=== PATIENT | female | born 1995 | race Two or more races ===

== ENCOUNTER 2024-02-06 14:40 | Outpatient (CLI) | payer OTHER | END 2024-02-06 14:41 | disposition home or self-care (01) | LOC: PRENATAL 14:40 | PROVIDERS: ATTEND Obstetrics & Gynecology Maternal & Fetal Medicine | DX: O36.80X0 Pregnancy with inconclusive fetal viability, not applicable or unspecified (principal); Z36.9 Encounter for antenatal screening, unspecified; Z36.82 Encounter for antenatal screening for nuchal translucency; Z3A.12 12 weeks gestation of pregnancy ==

== ENCOUNTER 2024-03-29 15:39 | Outpatient (CLI) | payer OTHER | END 2024-03-29 15:40 | disposition home or self-care (01) | LOC: PRENATAL 15:39 | PROVIDERS: ATTEND Obstetrics & Gynecology Maternal & Fetal Medicine | DX: O35.3XX0 Maternal care for (suspected) damage to fetus from viral disease in mother, not applicable or unspecified (principal); O44.00 Complete placenta previa NOS or without hemorrhage, unspecified trimester; Z3A.20 20 weeks gestation of pregnancy ==

== ENCOUNTER 2024-06-10 15:55 | Outpatient (CLI) | payer OTHER | END 2024-06-10 19:42 | disposition home or self-care (01) | LOC: NST 15:55 | PROVIDERS: ATTEND Obstetrics & Gynecology | DX: Z34.83 Encounter for supervision of other normal pregnancy, third trimester (principal) ==

== ENCOUNTER 2024-07-30 22:08 | Inpatient (IN) | payer OTHER ==
[~2024-07-30] VITALS: Ht 160 cm; Wt 73.9 kg
[2024-07-30 21:43] VITALS: BP 110/73
[2024-07-30] MEDS ORDERED: AMPICILLIN SODIUM 2,000 MG VIAL ONE (22:20)
[2024-07-30] MEDS ORDERED: AMPICILLIN SODIUM 2,000 MG VIAL IV ONE (22:30)
[2024-07-30] MEDS ORDERED: RINGERS SOLUTION,LACTATED 1,000 ML IV SCH (22:30)
[2024-07-30] MEDS ORDERED: PRENATAL TABLE1 EAC4 PO (22:35)
[2024-07-30 23:12] VITALS: BP 97/64
[2024-07-30 23:23] LABS: URINE APPEARANCE Clear; URINE BILIRRUBIN Negative (NEGATIVE); URINE BLOOD Negative; URINE COLOR Yellow; URINE GLUCOSE Negative (NEGATIVE); URINE KETONE Negative (NEGATIVE); URINE LEUKOCYTE Negative; URINE NITRATE Negative; URINE PROTEIN Negative (NEGATIVE); URINE UROBILINOGEN 0.2 E.U./dl
[2024-07-30 23:24] LABS: HEMATOCRIT 34.8 % (36.0-45.00); HEMOGLOBIN 11.5 g/dL (12.0-15.00); MEAN CELL VOLUME 81.6 fL (80.00-100.00); MEAN CORPUSCULAR HGB CONC 33.1 g/dl (32.0-36.0); PLATELET COUNT 203 K/uL (150-450); RED BLOOD COUNT 4.26 M/uL (4.00-6.00)
[2024-07-30 23:27] LABS: URINE BACTERIA 165.1 uL (0.0-1933); URINE EPITHELIAL CELLS 3.1 uL (0.0-38.8); URINE RBC 12.8 uL (0.0-20.8); URINE WBC 2.2 uL (0.0-23.2)
[2024-07-30 23:41] LABS: INR < 0.93; PARTIAL THROMBOPLASTIN TIME 27.1 SECONDS (22.0-34.0)
[2024-07-30 23:46] LABS: ALBUMIN 2.6 gm/dL (3.4-5.0); BILIRUBIN TOTAL 0.24 mg/dL (0.3-1.2); CALCIUM 8.8 mg/dL (8.5-10.1); CREATININE SERUM 0.46 mg/dL (0.55-1.02); GFR 162.95; GLOBULINA 3.2 G/DL (2.4-3.5); POTASSIUM 4.13 mEq/L (3.5-5.1); TOTAL PROTEIN 5.8 gm/dL (6.4-8.2)
[2024-07-31] VITALS (10 sets, daily range): BP systolic 108–135; BP diastolic 51–77
[2024-07-31] MEDS ORDERED: AMPICILLIN SODIUM 1,000 MG VIAL ONE ×2 (03:47→07:32)
[2024-07-31] MEDS ORDERED: AMPICILLIN SODIUM 1,000 MG VIAL IV SCH (04:00)
[2024-07-31] MEDS ORDERED: OXYTOCIN 20 UNITS/500ML RL PIGGYBAG IV ONE (06:55)
[2024-07-31] MEDS ORDERED: OXYTOCIN 500 ML IV SCH (07:00)
[2024-07-31] MEDS ORDERED: CHLORHEXIDINE GLUCONATE 120 ML BOTTLE TOP ONE (12:37)
[2024-07-31] MEDS ORDERED: ERYTHROMYCIN BASE OPHT 1GM EACH TUBE OP ONE ×2 (12:37→17:45)
[2024-07-31] MEDS ORDERED: LIDOCAINE HCL 1% 10ML VIAL ONE (12:37)
[2024-07-31] MEDS ORDERED: OXYTOCIN 20 UNITS/1000ML RL PIGGYBAG IV ONE (12:37)
[2024-07-31] MEDS ORDERED: KETOROLAC TROMETHAMINE 30 MG VIAL ONE (17:11)
[2024-07-31] MEDS ORDERED: OXYTOCIN 1,000 ML IV SCH (18:15)
[2024-07-31] MEDS ORDERED: IBUprofen 400 MG TABLET PO PRN (18:15)
[2024-07-31] MEDS ORDERED: CHLORHEXIDINE GLUCONATE 120 ML BOTTLE TP SCH (18:15)
[2024-07-31] MEDS ORDERED: OxyCODONE HCL/APAP UD (PERCOCET) PO PRN (18:15)
[2024-07-31] MEDS ORDERED: ACETAMINOPHEN 325 MG TABLET PO PRN (18:30)
[2024-07-31] MEDS ORDERED: KETOROLAC TROMETHAMINE 30 MG VIAL IV ONE (18:30)
[2024-08-01 03:24] VITALS: BP 107/66
[2024-08-01 06:31] LABS: HEMATOCRIT 29.1 % (36.0-45.00); MEAN CELL VOLUME 82.8 fL (80.00-100.00); MEAN CORPUSCULAR HGB CONC 32.9 g/dl (32.0-36.0); PLATELET COUNT 190 K/uL (150-450); RED BLOOD COUNT 3.51 M/uL (4.00-6.00)
[2024-08-01 06:38] LABS: HEMOGLOBIN 9.6 g/dL (12.0-15.00); MEAN CORPUSCULAR HEMOGLOBIN 27.3 pg (27.00-32.0)
[2024-08-01 08:09] VITALS: BP 115/62
[2024-08-01] MEDS ORDERED: PNV,CALCIUM 72/IRON/FOLIC ACID 1 TAB TABLET PO SCH (09:00)
[2024-08-01] MEDS ORDERED: DOCUSATE SODIUM 100MG CAP PO NR (13:00)
[2024-08-01 15:53] VITALS: BP 116/73
[2024-08-02 02:18] VITALS: BP 112/74; BP 116/75
[2024-08-02 08:00] VITALS: BP 109/71
[2024-08-02] MEDS ORDERED: DOCUSATE SODIUM 100MG CAP PO SCH (09:00)
[2024-08-02] MEDS ORDERED: MAGNESIUM HYDROXIDE 30 ML BLIST.PACK PO NR (09:00)
[2024-08-02] MEDS ORDERED: BISACODYL 10 MG/SUPP.RECT SUPP.RECT RECTAL NR (09:00)
[2024-08-02] MEDS ORDERED: MINERAL OIL 30 ML BLIST.PACK PO NR (09:00)
[2024-08-02 15:33] VITALS: BP 135/83
[2024-08-02] MEDS ORDERED: HYDROCORTISONE 1% 29 G TUBE TOP SCH (21:35)
[2024-08-03 07:38] VITALS: BP 116/77
== END 2024-08-03 13:21 | disposition home or self-care (01) | DRG 807 ==
LOC: LDR 22:08 → OB/GYN 07-31 18:55
PROVIDERS: Obstetrics & Gynecology; Specialist; ADMIT Student in an Organized Health Care Education/Training Program; ATTEND Student in an Organized Health Care Education/Training Program
PROC: 4A1HXCZ Monitoring of Products of Conception, Cardiac Rate, External Approach (ICD-10-PCS; 2024-07-30)
PROC: 10E0XZZ Delivery of Products of Conception, External Approach (ICD-10-PCS; principal; 2024-07-31)
PROC: 0UQG7ZZ Repair Vagina, Via Natural or Artificial Opening (ICD-10-PCS; 2024-07-31)
PROC: 3E033VJ Introduction of Other Hormone into Peripheral Vein, Percutaneous Approach (ICD-10-PCS; 2024-07-31)
DX: O71.4 Obstetric high vaginal laceration alone (principal); Z37.0 Single live birth; O42.02 Full-term premature rupture of membranes, onset of labor within 24 hours of rupture; Z3A.37 37 weeks gestation of pregnancy